=== PATIENT | female | born 1975 | race Caucasian/White ===

== ENCOUNTER 2016-10-23 10:48 | Outpatient (CLI) | payer BC, MEDICAID ==
[~2016-10-23] VITALS: Ht 154.9 cm; Wt 84.5 kg
[2016-10-23 10:54] VITALS: BP 116/62; PULSE 121; RESP 20
[2016-10-23 10:55] VITALS: Ht 154.9 cm; Wt 84.5 kg
[2016-10-23 12:11] LABS: ADD SCAN DIFF NO
[2016-10-23 12:14] LABS: BASOPHILS % 0.2 % (0.0-2.0); EOSINOPHILS % 0.2 % (0.0-7.0); HEMATOCRIT 36.2 % (37.0-47.0); HEMOGLOBIN 11.8 g/dl (12.0-16.0); LYMPHOCYTES # 0.7 10^3/ul (0.8-2.9); LYMPHOCYTES % 6.8 % (15.0-51.0); MEAN CORPUSCULAR HEMOGLOBIN 29.1 pg (29.0-33.0); MEAN CORPUSCULAR HGB CONC 32.6 g/dl (32.0-37.0); MEAN CORPUSCULAR VOLUME 89.4 fl (82.0-101.0); MEAN PLATELET VOLUME 9.8 fl (7.4-10.4); MONOCYTE # 0.5 10^3/ul (0.3-0.9); MONOCYTES % 4.7 % (0.0-11.0); NEUTROPHIL # 9.2 10^3/ul (1.6-7.5); PLATELET COUNT 230 10^3/UL (140-415); RED BLOOD COUNT 4.05 10^6/ul (4.20-5.40); RED CELL DISTRIBUTION WIDTH 13.1 % (11.5-14.5); WHITE BLOOD COUNT 10.5 10^3/ul (4.8-10.8)
[2016-10-23 12:24] LABS: ADD UMIC YES; URINE BILIRUBIN (Dip) 1+ (NEGATIVE); URINE BLOOD (Dip) NEGATIVE (NEGATIVE); URINE COLOR ORANGE (YELLOW); URINE GLUCOSE (Dip) NEGATIVE (NEGATIVE); URINE KETONES (Dip) 40 (NEGATIVE); URINE LEUKOCYTE ESTERASE (Dip) NEGATIVE (NEGATIVE); URINE NITRITE (Dip) NEGATIVE (NEGATIVE); URINE TOTAL PROTEIN (Dip) TRACE (NEGATIVE); URINE UROBILINOGEN (Dip) 1.0 E.U./dL (0.1-1.0)
[2016-10-23 12:37] LABS: ICTOTEST NEGATIVE (NEGATIVE); MUCUS,URINE FEW; SQUAMOUS EPITHELIAL CELL,UR FEW; URINE RBCS NONE SEEN /HPF (0)
--- NOTE | 2016-10-23 13:04 | RADRPT ---
PROCEDURE: US OB biophysical profile. CLINICAL INDICATION: decreased movements, labor TECHNIQUE: Multiple sonographic images of the pelvis were obtained. The images were reviewed on a PACS workstation. COMPARISON: No prior studies are available for comparison. FINDINGS: There is a single viable intrauterine gestation. Cardiac activity is present with 166 beats per min [place]. There is a vertex presentation. The placenta is anterior. There is no evidence of placental abruption. There is a normal amount of amniotic fluid with an DEJAN = 15.3 cm. Biophysical profile: movement 2/2 tone 2/2. breathing 2/2 DEJAN 2/2 Total 02/26 RPTAT: AA . IMPRESSION: Normal biophysical profile. . .Feliciano Ohara MD, Date Time Electronically viewed and signed by .Feliciano Ohara MD, MD on 10/23/2016 13:03 .S/
--- NOTE | 2016-10-23 13:08 | RADRPT ---
PROCEDURE: Retroperitoneal US. CLINICAL INDICATION: Flank pain TECHNIQUE: Multiple sonographic images of the kidneys and retroperitoneum were obtained. The imag es were reviewed on a PACS workstation. COMPARISON: No prior studies are available for comparison. FINDINGS: The kidneys are normal in size, contour, cortical thickness and cortical echogenicity. The right kidney measures 11.4 cm. The left kidney measures 11.1 cm. No kidney stones are visualized. There is no evidence for hydronephrosis. The urinary bladder is not visualized. RPTAT: AA IMPRESSION: Unremarkable retroperitoneal ultrasound. .Feliciano Ohara MD, Date Time Electronically viewed and signed by .Feliciano Ohara MD, on 10/23/2016 13:08 .S/
--- NOTE | 2016-10-23 14:00 | TRIAGE ---
OB Triage Datetime Report Generated by CPN: 10/23/2016 13:59 Datetime: 10/23/2016 12:22 Labor Evaluation Frequency: 0 Monitor Mode: External Pattern: Normal: <= 5 Contractions in 10 Minutes Resting Tone [place]: Relaxed Heart Rate FHR Baseline Rate: 180 Monitor Mode: External US FHR Baseline Changes: Tachycardia Variability: Moderate 6-25 bpm Accelerations: 15X15 Decelerations: None Category: Category II Datetime: 10/23/2016 11:49 Labor Evaluation Frequency: IRREG Monitor Mode: External Duration (sec)2399: 50-70 Pattern: Normal: <= 5 Contractions in 10 Minutes Resting Tone [place]: Relaxed Heart Rate FHR Baseline Rate: 150 Monitor Mode: External US Variability: Moderate 6-25 bpm Accelerations: 15X15 Decelerations: None Category: Category I Datetime: 10/23/2016 11:09 EGA: 31.2 Datetime: 10/23/2016 10:58 Assessment Type: Triage Maternal Assessment Level of Consciousness: Fully Conscious DTR's/Clonus: DTRs 2+; No Clonus Headache: Denies Blurred Vision: No Respiratory Effort: Unlabored; Regular Rhythm; Equal Expansion Breath Sounds, Left: Clear and Equal Breath Sounds, Right: Clear and Equal Nausea/Vomiting: Denies RUQ Epigastric Pain: Denies Lower Extremities Edema: None Degree: None Upper Extremities Edema: None Degree: None Facial Edema: None Fall Risk Assessment History of Falling: (0) No Secondary Diagnosis: (0) No Ambulatory Aid: (0) Bedrest/Nurse Assist IV Therapy: (0) No Gait: (0) Normal/Bedrest/Immobile Mental Status: (0) Oriented to Own Ability Fall Score: 0 Fall Risk Score Definition: No Risk: No action required Datetime: 10/23/2016 10:57 Time of Arrival: 10/23/2016 10:50 Arrived By: Wheelchair Arrived From: Home Chief Complaint: CONTACTIONS SINCE 2199 LAST NIGHT Movement: Present Movement: Decreased Contractions: Regular Time Contractions Began: 10/22/2016 22:00 Rupture of Membranes: Denies Rupture of Membranes: Denies Vaginal Bleeding: None Vaginal Discharge: Denies Recent Sexual Intercouse: Denies Abdominal Trauma: Not Applicable Patient Complaints: Contractions Time Provider Notified: 10/23/2016 11:14 Provider Notified: DR. APARICIO Initial Plan: TOCO/ US Datetime: 10/23/2016 10:55 Vaginal Exam Dilatation (cms): 1.0 Effacement (%): 40 Station: -3 Exam By: Lora GOLDEN Membrane Status: Intact Datetime: 10/23/2016 10:52 Pain Assessment Pain Scale: 10 Pain Presence: Intermittent Pain Type: Contraction Pain Location: Abdomen Pain Relief Measures: Comfort Measures Datetime: 10/23/2016 10:45 Stage of : OB Triage
--- NOTE | 2016-10-23 14:04 | CONS ---
Date/Time of Note Date/Time of Note DATE: 10/23/16 TIME: 13:53 Consultation Date/Type/Reason Admit Date/Time October 23, 2016 OB triage clinic consult Reason for Consultation This patient is a 41 years old 4 para 3 1 living 3 with estimated date of confinement of December 25, 2016 which makes her 31 weeks and 2 days now She came in complaining of a general body aches especially in the lower abdomen low back and was concerned about contractions and possible early labor On examination She is a well-developed well-nourished lady . Her ears nose throat appear to be no neck vein distention no thyromegaly no lymph node enlargement chest is clear to auscultation percussion Her heart rate is around 121 blood pressure 116/62 respirations 20 temperature is 98.8 Abdomen examination is soft movement is normal heart tone appears to be normal she does not have a true CVA tenderness but does have some tenderness of low back as well as lower abdomen On pelvic examination cervix was 1 cm thick and high with intact membranes Extremities no edema no varicosities knee-jerk reflexes normal on lab studies her urine test was basically normal except for consultation to do a urine with high ketone 1+ bilirubin general blood test was okay except for mild anemia with hemoglobin of 11.8 hematocrit 36.2 WBC was 10.5 mentioned due to lower back and flank pain ultrasound study of the kidney was ordered. Result was basically normal kidneys in size and contour kidneys were reported to be measuring 10.4 cm on the right one in the left 111.1 no evidence of hydronephrosis or kidney On obstetrical ultrasound study a single viable intrauterine gestation was reported with normal cardiac activity the heart beat was 1 160s placenta was anterior no evidence of abruption DEJAN was 15.3 cm biophysical profile was 02/26 Laboratory Tests Test 10/23/16 12:05 White Blood Count 10.510^3/ul Red Blood Count 4.0510^6/ul Hemoglobin 11.8g/dl Hematocrit 36.2% Mean Corpuscular Volume 89.4fl Mean Corpuscular Hemoglobin 29.1pg Mean Corpuscular Hemoglobin Concent 32.6g/dl Red Cell Distribution Width 13.1% Platelet Count 28488^3/UL Mean Platelet Volume 9.8fl Neutrophils % 87.0% Lymphocytes % 6.8% Monocytes % 4.7% Eosinophils % 0.2% Basophils % 0.2% Nucleated Red Blood Cells % 0.0/100WBC Neutrophils # 9.210^3/ul Lymphocytes # 0.710^3/ul Monocytes # 0.510^3/ul Eosinophils # 0.010^3/ul Basophils # 0.010^3/ul Nucleated Red Blood Cells # 0.010^3/ul Urine Color ORANGE Urine Clarity CLEAR Urine pH 6.5 Urine Specific [place] 1.020 Urine Ketones 40 Urine Nitrite NEGATIVE Urine Bilirubin 1+ Urine Ictotest NEGATIVE Urine Urobilinogen 1.0 E.U./dL Urine Leukocyte Esterase NEGATIVE Urine Microscopic RBC NONE SEEN/HPF Urine Microscopic WBC 0-2/HPF Urine Squamous Epithelial Cells FEW Urine Mucus FEW Urine Hemoglobin NEGATIVE Urine Glucose NEGATIVE% Urine Total Protein TRACE Constitutional: chills Eyes: No discharge, No no complaints, No other, No pain, No redness, No visual change ENT: No bleeding, No congestion, No discharge, No dysphagia, No no complaints, No other, No pain, No sore throat Respiratory: No cough, No no complaints, No other, No pain, No pleuritic pain, No shortness of breath, No sputum, No wheezing Cardiovascular: No chest pain, No edema, No lightheadedness, No no complaints, No orthopenea, No other, No palpitations, No paroxysmal nocturnal dyspnea Gastrointestinal: other (Slight lower abdominal pain), No blood, No constipation, No decreased appetite, No diarrhea, No flatus, No nausea, No no complaints, No pain, No passing stool, No vomiting Genitourinary: other (On pelvic exam as I mentioned the cervix was closed thick head was high membranes were intact), No bleeding, No discharge, No dysuria, No flank pain, No hematuria, No no complaints Skin: No bruising, No erythema, No laceration, No no complaints, No other, No pruritis, No rash, No skin lesions Neurologic: No confusion, No dizziness, No focal-weakness, No headache, No no complaints, No other, No seizure, No syncope Lymphatic: No adenopathy, No lymphadema, No no complaints, No other, No tender nodes Additional Comments With these finding reassurance was given to the patient and asked to go home and drink plenty of fluid if any further pain or discomfort she can come back in the hospital we will see her again or just make an appointment with her own physician's office Social History Smoking Status: Never smoker Exam/Review of Systems Vital Signs Vitals Vital Signs Date Time Temp Pulse Resp B/P Pulse Ox O2 Delivery O2 Flow Rate FiO2 10/23/16 10:54 98.8 121 20 116/62 Room Air Results Result Diagram: 10/23/16 1205 Results 24 hrs Laboratory Tests Test 10/23/16 12:05 White Blood Count 10.5 Red Blood Count 4.05 L Hemoglobin 11.8 L Hematocrit 36.2 L Mean Corpuscular Volume 89.4 Mean Corpuscular Hemoglobin 29.1 Mean Corpuscular Hemoglobin Concent 32.6 Red Cell Distribution Width 13.1 Platelet Count 230 Mean Platelet Volume 9.8 Neutrophils % 87.0 H Lymphocytes % 6.8 L Monocytes % 4.7 Eosinophils % 0.2 Basophils % 0.2 Nucleated Red Blood Cells % 0.0 Neutrophils # 9.2 H Lymphocytes # 0.7 L Monocytes # 0.5 Eosinophils # 0.0 Basophils # 0.0 Nucleated Red Blood Cells # 0.0 Urine Color ORANGE Urine Clarity CLEAR Urine pH 6.5 Urine Specific [place] 1.020 Urine Ketones 40 Urine Nitrite NEGATIVE Urine Bilirubin 1+ H Urine Ictotest NEGATIVE Urine Urobilinogen 1.0 E.U./dL Urine Leukocyte Esterase NEGATIVE Urine Microscopic RBC NONE SEEN Urine Microscopic WBC 0-2 Urine Squamous Epithelial Cells FEW Urine Mucus FEW Urine Hemoglobin NEGATIVE Urine Glucose NEGATIVE Urine Total Protein TRACE GERRY APARICIO MD Oct 23, 2016 14:03
[2016-10-23] MEDS ORDERED: PREN1TAB62 PO (14:12)
[2016-10-23] MEDS ORDERED: IRON1TAB74 PO (14:13)
[2016-10-23] MEDS ORDERED: FOLI-49 PO (14:13)
[2016-10-23] MEDS ORDERED: CALC-134 PO (14:14)
== END 2016-10-23 14:15 | disposition home or self-care (01) ==
LOC: OBT 10:48 → L-D 10:49 → OBT 14:15
DX: O26.893 Other specified pregnancy related conditions, third trimester (principal); R10.30 Lower abdominal pain, unspecified; O09.523 Supervision of elderly multigravida, third trimester; Z3A.31 31 weeks gestation of pregnancy
CPT/HCPCS: 76775; 76818; 81001; 81003; 85025; 87086; Z7500; G0463